=== PATIENT | male | born 1955 | race Caucasian/White ===

== ENCOUNTER 2016-08-17 10:56 | Day surgery (SDC) | payer OTHER ==
[2016-08-14 08:40] VITALS: BMI 28.5
[~2016-08-17 10:56] MED LIST: LIDOCAINE 1% 20 ML VIAL (10MG/ML) FOR IV START INTRADERMA PRN
[2016-08-17 11:12] VITALS: TEMP 97.9
[2016-08-17] MEDS ORDERED: LIDOCAINE 1% 20 ML VIAL (10MG/ML) FOR IV START INTRADERMA ONE (11:25)
[2016-08-17] MEDS: LACTATED RINGERS 1,000 ML IV SCH ×2 (11:25→12:09)
[2016-08-17] MEDS ORDERED: PROPOFOL 10 MG/ML 20 ML VIAL IV ONE (12:10)
[2016-08-17] MEDS ORDERED: LIDOCAINE 1% INJ 10MG/ML (20 ML MDV) ONE (12:10)
--- NOTE | 2016-08-17 12:24 | P.GSHP ---
History of Present Illness H&P Date: 08/17/16 Chief Complaint: GERD This is a 60-year-old male from Dr. santana. Patient complaints of GERD. He has had issues with reflux for several years. He has been known to have a hiatal hernia as well as He's esophagus. Patient states that he is having reflux of food and liquid. He sleeps with his head in an elevated position. - Constitutional Constitutional: Reports as per HPI Past Medical History Past Medical History: GERD/Reflux, Skin Disorder, Thyroid Disorder Additional Past Medical History / Comment(s): psoriasis, hx He's esophagus , hx ulcer, varicose veins, hiatal hernia, History of Any Multi-Drug Resistant Organisms: None Reported Past Surgical History: Hernia Repair, Orthopedic Surgery Additional Past Surgical History / Comment(s): jeremías ankle ORIF, EGD Past Anesthesia/Blood Transfusion Reactions: No Reported Reaction Past Psychological History: No Psychological Hx Reported Smoking Status: Former smoker Past Alcohol Use History: Occasional Additional Past Alcohol Use History / Comment(s): smoked for 2 yrs as a teen Past Drug Use History: None Reported - Past Family History Mother Family Medical History: No Reported History Father Family Medical History: Cancer Medications and Allergies Home Medications Medication Instructions Recorded Confirmed Type Levothyroxine Sodium [Synthroid] 88 mcg PO DAILY 05/05/16 08/17/16 History Multivitamins, Thera [Multivitamin] 1 tab PO DAILY 05/05/16 08/17/16 History Omeprazole [PriLOSEC] 40 mg PO BID 05/05/16 08/17/16 History Enseilar Foam 1 applicate TOPICAL DAILY 08/14/16 08/17/16 History [place]-3 Fatty Acids/Fish Oil [Fish 1 each PO DAILY 08/14/16 08/17/16 History Oil 1,000 mg Softgel] Sildenafil Citrate [Viagra] 50 mg PO DIRECTED PRN 08/14/16 08/17/16 History Vitamin D(Dose Unknown) 1 tab PO DAILY 08/14/16 08/17/16 History Allergies Allergy/AdvReac Type Severity Reaction Status Date / Time No Known Allergies Allergy Verified 08/17/16 11:12 Surgical - Exam Vital Signs Temp Pulse Resp BP Pulse Ox 97.9 F 77 18 153/90 98 08/17/16 11:11 08/17/16 11:11 08/17/16 11:11 08/17/16 11:11 08/17/16 11:11 - General well developed, well nourished, no distress - Eyes PERRL - ENT normal pinna - Neck no masses - Respiratory normal expansion - Cardiovascular Rhythm: regular - Abdomen Abdomen: soft, non tender Assessment and Plan Plan: GERD. We'll perform EGD.
[2016-08-17 12:28] VITALS: RESP 16
[2016-08-17 12:46] VITALS: BP 140/92; PULSE 69
--- NOTE | 2016-08-27 14:48 | P.OP ---
Date of Procedure: 08/17/16 Preoperative Diagnosis: GERD Postoperative Diagnosis: Hiatal hernia Antral gastritis Esophagitis Procedure(s) Performed: EGD Anesthesia: MAC Surgeon: Iglesia Wu Pathology: other (Antrum, esophagus) Condition: stable Description of Procedure: The patient's placed on the endoscopy table in the lateral position. He received IV sedation. The gastroscope some placed oropharynx and passed into the esophagus and into the stomach. The scope was then brought back into the antrum this. Mildly inflamed. A biopsies performed. The scope was unretroflexed and remainder stomach appeared normal. There was a hiatal hernia seen. The GE junction was at 38 cm. The distal esophagus appeared to be inflamed. A biopsies performed. The proximal esophagus appeared normal. Scope withdrawn for patient.
== END 2016-08-17 13:33 | disposition home or self-care (01) ==
LOC: ORWHC2ENDO 10:56
PROVIDERS: ATTEND Surgery
DX: K29.50 Unspecified chronic gastritis without bleeding (principal); K21.0 Gastro-esophageal reflux disease with esophagitis; K44.9 Diaphragmatic hernia without obstruction or gangrene; E07.9 Disorder of thyroid, unspecified; Z79.899 Other long term (current) drug therapy; Z87.891 Personal history of nicotine dependence
CPT/HCPCS: 88305; 88342; 43239; J2001; J2704; 99153

== ENCOUNTER → 2016-08-28 | Outpatient (CLI) | payer OTHER | END | disposition home or self-care (01) | LOC: LABPAT 06:36 | PROVIDERS: ATTEND Anesthesiology | DX: Z01.812 Encounter for preprocedural laboratory examination (principal); Z01.810 Encounter for preprocedural cardiovascular examination | CPT/HCPCS: 93005 ==

== ENCOUNTER 2016-09-03 06:30 | Observation (INO) | payer OTHER ==
[2016-08-27 14:29] VITALS: BMI 28.5
[~2016-09-03 06:30] MED LIST changes: +HEPARIN SODIUM,PORCINE 5,000 UNIT/ML 1 ML VIAL SQ ONE; -LIDOCAINE 1% 20 ML VIAL (10MG/ML) FOR IV START INTRADERMA PRN; +ceFAZolin 2 GM in SODIUM CHLORIDE 0.9% 100 ML IVPB ONE
[2016-09-03] MEDS ORDERED: ONDANSETRON 4 MG/2 ML VIAL IVP ONE ×2 (06:32→10:16)
[2016-09-03] MEDS ORDERED: LIDOCAINE 1% 20 ML VIAL (10MG/ML) FOR IV START INTRADERMA PRN (06:32)
[2016-09-03] MEDS ORDERED: MIDAZOLAM 2 MG/2 ML VIAL IV PRN (06:32)
[2016-09-03] MEDS ORDERED: DEXAMETHASONE SOD PHOSPHATE 10 MG/ML 1 ML VIAL IV ONE (06:32)
[2016-09-03] MEDS ORDERED: SCOPOLAMINE 1.5MG/72HR PATCH TRANSDERM ONE (06:32)
[2016-09-03] MEDS: LACTATED RINGERS 1,000 ML IV SCH (06:43)
[2016-09-03] MEDS ORDERED: BUPIVACAIN-EPI 0.25%-1:200,000 30 ML VIAL SQ ONE ×3 (07:34→09:10)
--- NOTE | 2016-09-03 07:53 | P.GSHP ---
History of Present Illness H&P Date: 09/03/16 Chief Complaint: GERD This is a 60-year-old male referred from Dr. Bolivar. The patient has had long-standing problems with reflux esophagitis. The patient underwent recent EGD is found have evidence of esophagitis. Patient has been well informed on the procedure of laparoscopic Segun fundoplication. The patient is aware the risk of the conversion to the open procedure, risk of injury to the stomach, liver and spleen. The patient is also a risk of recurrent GERD and dysphagia symptoms. The patient understands there is a postoperative diet of full liquids for 2 weeks after surgery. Past Medical History Past Medical History: GERD/Reflux, Skin Disorder, Thyroid Disorder Additional Past Medical History / Comment(s): psoriasis, hx He's esophagus , hx ulcer, varicose veins, hiatal hernia, History of Any Multi-Drug Resistant Organisms: None Reported Past Surgical History: Hernia Repair, Orthopedic Surgery Additional Past Surgical History / Comment(s): jeremías ankle ORIF, EGD Past Anesthesia/Blood Transfusion Reactions: No Reported Reaction Past Psychological History: No Psychological Hx Reported Smoking Status: Former smoker Past Alcohol Use History: Occasional Additional Past Alcohol Use History / Comment(s): smoked for 2 yrs as a teen Past Drug Use History: None Reported - Past Family History Mother Family Medical History: No Reported History Father Family Medical History: Cancer Medications and Allergies Home Medications Medication Instructions Recorded Confirmed Type Levothyroxine Sodium [Synthroid] 88 mcg PO DAILY 05/05/16 08/27/16 History Multivitamins, Thera [Multivitamin] 1 tab PO DAILY 05/05/16 08/27/16 History Omeprazole [PriLOSEC] 40 mg PO BID 05/05/16 08/27/16 History Enseilar Foam 1 applicate TOPICAL DAILY 08/14/16 08/27/16 History [place]-3 Fatty Acids/Fish Oil [Fish 1 each PO DAILY 08/14/16 08/27/16 History Oil 1,000 mg Softgel] Sildenafil Citrate [Viagra] 50 mg PO DIRECTED PRN 08/14/16 08/27/16 History Vitamin D(Dose Unknown) 1 tab PO DAILY 08/14/16 08/27/16 History Allergies Allergy/AdvReac Type Severity Reaction Status Date / Time No Known Allergies Allergy Verified 08/27/16 14:24 Surgical - Exam Vital Signs Temp Pulse Resp BP Pulse Ox 97.9 F 78 16 132/88 97 09/03/16 06:45 09/03/16 06:45 09/03/16 06:45 09/03/16 06:45 09/03/16 06:45 - General well developed, no distress - Eyes PERRL - ENT normal pinna - Neck no masses - Respiratory normal expansion - Cardiovascular Rhythm: regular - Abdomen Abdomen: soft, non tender Assessment and Plan Plan: GERD. We'll perform laparoscopic Segun fundoplication.
[2016-09-03] MEDS ORDERED: fentaNYL (PF) 50 MCG/ML 2 ML AMP ONE (07:59)
[2016-09-03] MEDS ORDERED: LIDOCAINE 1% INJ 10MG/ML (20 ML MDV) ONE (07:59)
[2016-09-03] MEDS ORDERED: GLYCOPYRROLATE 0.2 MG/ML 2 ML VIAL ONE (07:59)
[2016-09-03] MEDS ORDERED: PROPOFOL 10 MG/ML 20 ML VIAL IV ONE (07:59)
[2016-09-03] MEDS ORDERED: NEOSTIGMINE 1 MG/ML 10 ML VIAL ONE (07:59)
[2016-09-03] MEDS ORDERED: MIDAZOLAM 2 MG/2 ML VIAL ONE (07:59)
[2016-09-03] MEDS ORDERED: ROCURONIUM BROMIDE 10 MG/ML 10 ML VIAL IV ONE (07:59)
[2016-09-03] MEDS ORDERED: SUCCINYLCHOLINE CHLORIDE 100 MG/5 ML SYR IV ONE (07:59)
[2016-09-03] MEDS ORDERED: LACTATED RINGERS 1,000 ML IV ONE ×4 (09:19→09:45)
[2016-09-03] MEDS ORDERED: NALOXONE 0.4 MG/ML 1 ML VIAL IV PRN (09:19)
[2016-09-03] MEDS ORDERED: HYDROcodone/APAP 5-325MG 1 EACH TAB PO PRN (09:19)
[2016-09-03] MEDS ORDERED: ONDANSETRON 4 MG/2 ML VIAL IVP PRN (09:19)
--- NOTE | 2016-09-03 09:19 | P.OP ---
Date of Procedure: 09/03/16 Preoperative Diagnosis: GERD Postoperative Diagnosis: GERD Procedure(s) Performed: Laparoscopic Segun fundoplication Anesthesia: DONAVON Surgeon: Iglesia Wu Estimated Blood Loss (ml): 5 Pathology: none sent Condition: stable Disposition: PACU Description of Procedure: The patient was placed on the operating table in the supine position. The patient received general anesthesia. And was placed in dorsal lithotomy position. The patient was prepped and draped in the usual sterile fashion. The skin incision sites were anesthetized with 1% local Xylocaine. The skin was incised in the left periumbilical area and then using a blade less 5 mm trocar under direct visualization panel cavity was entered. After adequate insufflation the laparoscope was then placed into the peritoneal cavity. Next a 5 mm trochars placed in the right epigastric position. Another 5 millimeter trocar the right lateral position. Another 5 millimeter trocar in the left lateral position a 5 mm trocar is placed in the left epigastric position. And then the initial 5 mm trocar was exchanged for a 10 mm trocar. The left lateral lobe liver was retracted. The hernia was seen. The crural defect was then dissected using the Harmonic scissors device. A 360 crural dissection was performed the esophagus stomach was reduced back into the peritoneal Cavity. The crural defect was then closed using 2-0 Ethibond suture. Next the fundus of the stomach was mobilized using the [place] scissors device. and then a 58-[place] bougie dilator was placed oropharynx passed into the esophagus and stomach the fundal plication wrap was then performed by grasping the fundus posteriorly and bringing it around the esophagus and stomach fundoplication was then performed using 2-0 Ethibond suture. Care was taken that the fundal location rested over top of the intra-abdominal esophagus. There was no injury seen to the stomach or esophagus. The dilator was then withdrawn. The abdomen was irrigated there is no bleeding seen. The trochars were then withdrawn and then skin incision sites were closed using 3-0 Monocryl suture Steri-Strips are applied. Patient thought procedure well and sent to recovery room in stable condition.
[2016-09-03] MEDS: HYDROmorphone 1 MG/ML 1 ML SYRINGE IVP PRN ×4 (09:50→20:39)
[2016-09-03] MEDS ORDERED: PANTOPRAZOLE 40 MG/10 ML VIAL IVP ONE (11:30)
--- NOTE | 2016-09-03 15:10 | FL ---
EXAMINATION TYPE: FL UGI w esophagus DATE OF EXAM: 09/03/2016 3:02 PM COMPARISON: NONE HISTORY: Postop Tony TECHNIQUE: A single/double contrast UGI study is performed. FINDINGS: Small amount of free air is under the diaphragm on fluoroscopy. Following a small swallow of contrast no passage of contrast beyond the gastroesophageal junction was evident. A second swallow in a sligh tly different angle is likewise without passage none. Procedure was then terminated. Overhead radiographs are obtained although no additional passage was e vident at this time. Incidental note is made of a chronic fracture of the lateral left posterior rib. IMPRESSION: 1. Complete obstruction above the surgical post Tony fundoplication.
[2016-09-03] MEDS: HEPARIN SODIUM,PORCINE 5,000 UNIT/ML 1 ML VIAL SQ SCH ×2 (16:02→22:58)
[2016-09-03] MEDS ORDERED: ENALAPRILAT 1.25 MG/ML 1 ML VIAL IVP PRN (17:27)
--- NOTE | 2016-09-03 17:32 | P.PN ---
Progress Note - Text The patient is a 60-year-old gentleman with a history of recurrent gastroesophageal reflux with esophagitis. Patient has undergone Niesen fundoplication for surgical management. He presently is sitting up in bed. He has some upper back discomfort at times. No nausea or vomiting. No chest pain. No shortness of breath. Blood pressures have been elevated according to staff. Past medical history: 1. Patient does have history gastroesophageal reflux along with He's esophagus without dysplasia. 2. Hypothyroidism on replacement therapy. 3. History of psoriasis. No history of myocardial infarction, diabetes, or stroke. Medications: No known ALLERGIES Patient does use Viagra for erectile dysfunction as needed. Patient takes omeprazole 40 mg twice a day. [place]-3 fatty acids. Multiple vitamin. Levothyroxin 88 g daily Hydrocodone 7.5-325 one every 6 hours when necessary. Review of systems As mentioned in the history of present illness otherwise unremarkable. Family history Noncontributory Social history No history of any excessive alcohol usage or smoking. Physical examination: Patient is sitting up in bed. Comfortable. In no acute distress. Alert and oriented. Vital signs reveal pulse of 74 and respirations 18 and nonlabored. Blood pressure 141/87 and is O2 saturation is 100 on 2 L. Head and neck exam unremarkable. Extraocular movements intact. No adenopathy or thyromegaly detected in the neck. Lungs and heart examination is clear and regular. Abdomen is soft and nontender. No edema. Pneumatic devices in place. No cranial nerve deficits. He is alert and oriented. No focal weakness noted. Impressions and plans: The patient has past medical history as stated above and now is status post Segun fundoplication. He generally is feeling well. He has had some elevated blood pressures and we will add enalapril IV push if needed. Okay to continue to hold his thyroid medication. Plans are to have a repeat esophageal study tomorrow. Advance otherwise as per surgery. Call if any questions concerns or problems.
[2016-09-04] MEDS: LACTATED RINGERS 1,000 ML IV SCH (05:29)
[2016-09-04 07:17] VITALS: BP 123/62; PULSE 62; RESP 16; TEMP 98.2
--- NOTE | 2016-09-04 08:10 | P.PN ---
Progress Note - Text The patient is a 60-year-old gentleman with a history of recurrent gastroesophageal reflux and that underwent a fundoplication yesterday. This morning he is sitting up in bed. Alert. In no distress. He denies any unusual chest pain or shortness of breath at this time. No nausea or vomiting. Vital signs reveal temperature 98.2 with a pulse of 62 and respirations 16. Blood pressure 123/62. The highest it's been today is 140/86. And he is 96% saturated on room air. Lung and heart exam is clear. Abdomen nontender. No edema. No neurological deficits. Impressions and plans: Plans are to repeat his barium swallow this morning. Discussed with patient and at bedside. apparently has been concerned with some his blood pressure readings which were high yesterday. Presently though they are all within normal limits. She states that they will monitor his home blood pressures and if there is any questions can return to office for further monitoring of his blood pressures. At this time though do not see need to add antihypertensive medications. Can be progressed as per surgery and discharged pending surgical review and results of barium swallow.
--- NOTE | 2016-09-04 08:43 | FL ---
EXAMINATION TYPE: FL UGI w esophagus DATE OF EXAM: 09/04/2016 8:37 AM COMPARISON: 09/03/2016 HISTORY: Post Tony fundoplication TECHNIQUE: A single/double contrast UGI study is performed. FINDINGS: [employer] image of the abdomen shows no gross abnormality. The esophagus shows normal motility and emptying into the stomach. No evidence of hiatal hernia or s tricture noted. No significant gastroesophageal reflux was seen during real time performance of this study. Could not exclude a small amount of free intraperitoneal air which likely is postsurgical. Fluoroscopy time 24 seconds. IMPRESSION: 1. No evidence of obstruction or extravasation.
[2016-09-04] MEDS ORDERED: PANTOPRAZOLE 40 MG/10 ML VIAL IVP SCH (09:00)
[2016-09-04] MEDS: HEPARIN SODIUM,PORCINE 5,000 UNIT/ML 1 ML VIAL SQ SCH (09:07)
--- NOTE | 2016-09-04 12:45 | P.DS ---
Providers Date of admission: 09/03/16 20:49 Expected date of discharge: 09/04/16 Attending physician: Iglesia Wu Consults: 09/03/16 09:19 Consult Physician Routine Consulting Provider: Phuc Marina Reason/Comments: Medical management Do you want consulting provider notified?: Yes Primary care physician: Phuc Marina [facility] Hospital Course: Patient is a 60-year-old male with medical history significant for GERD and esophagitis not responding to medical management. Patient presented to the hospital for elective laparoscopic Segun fundoplication. Patient tolerated procedure well. Upper GI/barium swallow x-ray following surgery with evidence of complete obstruction above the GE junction. Repeat upper GI/barium swallow x-ray on postop day #1 with no evidence of obstruction or extravasation. Prior to discharge, patient denied dysphagia and was tolerating a clear liquid diet. Patient otherwise had an uneventful postoperative course and was deemed stable for discharge to home. Discharge diagnoses: GERD status post laparoscopic Segun fundoplication The above impression and plan have been discussed and directed by Dr. Wu. Kirstin DUMONT acting as scribe for Dr. Wu. Pertinent Studies: Upper GI/barium swallow x-ray 2 Procedures: Laparoscopic Segun fundoplication Patient Condition at Discharge: Good Plan - Discharge Summary New Discharge Prescriptions: HYDROcodone/APAP 7.5-325MG [[place] 7.5-325] 1 tab PO Q6HR PRN #28 tab PRN Reason: Pain Discharge Medication List Levothyroxine Sodium [Synthroid] 88 mcg PO DAILY 05/05/16 [History] Multivitamins, Thera [Multivitamin] 1 tab PO DAILY 05/05/16 [History] [place]-3 Fatty Acids/Fish Oil [Fish Oil 1,000 mg Softgel] 1 cap PO DAILY [History] Sildenafil Citrate [Viagra] 50 mg PO DAILY PRN 08/14/16 [History] Cholecalciferol [Vitamin D3] 1,000 unit PO DAILY 09/03/16 [History] Enstilar Foam 1 applic TOPICAL DAILY 09/03/16 [History] HYDROcodone/APAP 7.5-325MG [[place] 7.5-325] 1 tab PO Q6HR PRN #28 tab 09/03/16 [ Rx] Follow up Appointment(s)/Referral(s): Phuc Marina MD [Primary Care Provider] - 10/05/16 3:45 pm Iglesia Wu MD [STAFF PHYSICIAN] - 09/17/16 1:50 pm Patient Instructions/Handouts: *Surgery [facility] - ([facility]) Lap Segun Fundiplication Post-Op Instructions Activity/Diet/Wound Care/Special Instructions: No heavy lifting, pushing, or pulling items greater than 10 pounds. Full liquid diet for 2 weeks. No caffeinated beverages or straws. Shower daily, no soaking in bath tubs, pools, or hot tubs. No driving while taking pain medication. Notify surgeon with any signs or symptoms of infection, increased pain, or not tolerating diet. Discharge Disposition: HOME SELF-CARE
== END 2016-09-04 13:50 | disposition home or self-care (01) ==
LOC: OR 06:30 → 3SUR 09:20 → OR 20:49 → 3SUR 20:49
PROVIDERS: ADMIT Surgery; ATTEND Surgery
DX: K21.0 Gastro-esophageal reflux disease with esophagitis (principal); K22.70 Barrett's esophagus without dysplasia; K44.9 Diaphragmatic hernia without obstruction or gangrene; E03.9 Hypothyroidism, unspecified; Z87.891 Personal history of nicotine dependence; L40.9 Psoriasis, unspecified; Z79.899 Other long term (current) drug therapy
CPT/HCPCS: 74240 ×2; 43280; G0378 ×2; J2250; J1644 ×2; J1100; J2710; Q9967 ×2; J0690; J2405; J2001; J3010; J1170; J0330; J2704; C9113 ×2

== ENCOUNTER → 2016-10-06 | Outpatient (CLI) | payer OTHER ==
[2016-10-06 08:02] LABS: CH 32.3; CHCM 33.6; HCT 50.7 % (39.0-53.0); HDW 2.55; HGB 16.6 gm/dL (13.0-17.5); MCH 31.6 pg (25.0-35.0); MCHC 32.8 g/dL (31.0-37.0); MCV 96.4 fL (80.0-100.0); RBC 5.26 m/uL (4.30-5.90); WBC 4.3 k/uL (3.8-10.6)
[2016-10-06 11:49] LABS: ALT 51 U/L (21-72); AST 35 U/L (17-59); Alkaline Phosphatase 48 U/L (38-126); Anion Gap 6 mmol/L; Blood Urea Nitrogen 13 mg/dL (9-20); Calcium 9.6 mg/dL (8.4-10.2); Carbon Dioxide 31 mmol/L (22-30); Chloride 106 mmol/L (98-107); Cholesterol 130 mg/dL (<200); Glucose 101 mg/dL (74-99); HDL Cholesterol 91 mg/dL (40-60); Non-African American GFR(MDRD) >60 (>60 ml/min/1.73 sqM); Potassium 4.7 mmol/L (3.5-5.1); Sodium 143 mmol/L (137-145); Total Bilirubin 0.7 mg/dL (0.2-1.3); Total Protein 6.4 g/dL (6.3-8.2); Triglycerides 31 mg/dL (<150)
[2016-10-06 12:17] LABS: Prostate Specific Antigen 1.06 ng/mL (0.00-4.00)
== END | disposition home or self-care (01) ==
LOC: LABWHC1 07:00
PROVIDERS: ATTEND Internal Medicine
DX: E87.8 Other disorders of electrolyte and fluid balance, not elsewhere classified (principal); R53.83 Other fatigue; E03.9 Hypothyroidism, unspecified; E78.1 Pure hyperglyceridemia; N40.0 Benign prostatic hyperplasia without lower urinary tract symptoms
CPT/HCPCS: 36415; 80053; 80061; 84153; 84443; 85027

== ENCOUNTER → 2016-12-23 | Outpatient (CLI) | payer OTHER ==
--- NOTE | 2016-12-23 09:22 | NM ---
EXAMINATION TYPE: NM hepatobiliary w EF DATE OF EXAM: 12/23/2016 9:03 AM COMPARISON: NONE INDICATION: Gastroesophageal reflux disease TECHNIQUE: After the intravenous administration of 5.31 mCi Tc 99m Mebrofenin hepatobiliary scintigra phy is performed. Images were obtained immediately post injection. FINDINGS: There is prompt uptake and excretion of radiotracer by the liver. Extrahepatic ducts are identified at 16 minutes. The gallbladder is visualized within 16 minutes. Small bowel activity is noted within 48 minutes. At one hour 8 ounces of oral ensure plus is given to mimic CCK and gallbladder ejection fraction is c alculated at 99 %, which is markedly elevated. (Normal >35% and <80%.). IMPRESSION: 1. Biliary hyperkinesia with an ejection fraction of 99%.
== END | disposition home or self-care (01) ==
LOC: RADNMMAIN 06:47
PROVIDERS: ATTEND Surgery
DX: K82.8 Other specified diseases of gallbladder (principal)
CPT/HCPCS: 78226; A9537

== ENCOUNTER 2017-02-11 06:20 | Day surgery (SDC) | payer OTHER ==
[2017-02-05 11:30] VITALS: BMI 25.7
[~2017-02-11 06:20] MED LIST changes: +DEXAMETHASONE SOD PHOSPHATE 10 MG/ML 1 ML VIAL IV ONE; +HYDROmorphone 1 MG/ML 1 ML SYRINGE IVP PRN; +LACTATED RINGERS 1,000 ML IV SCH; +MIDAZOLAM 2 MG/2 ML VIAL IV PRN; +ONDANSETRON 4 MG/2 ML VIAL IVP ONE
[2017-02-11] MEDS ORDERED: LIDOCAINE 1% 20 ML VIAL (10MG/ML) FOR IV START INTRADERMA ONE (06:50)
[2017-02-11] MEDS ORDERED: BUPIVACAIN-EPI 0.5%-1:200,000 30 ML VIAL SQ ONE (07:26)
--- NOTE | 2017-02-11 07:42 | P.GSHP ---
History of Present Illness H&P Date: 02/11/17 Chief Complaint: Right upper quadrant pain This is a 61-year-old male for from Dr. Bolivar. Patient presents today for laparoscopic cholecystectomy. He's had right lower quadrant pain. His recent HIDA scan shows abnormal ejection fraction. Past Medical History Past Medical History: GERD/Reflux, Skin Disorder, Thyroid Disorder Additional Past Medical History / Comment(s): Difficulty swallowing, psoriasis, hx He's esophagus, hx ulcer, varicose veins. History of Any Multi-Drug Resistant Organisms: None Reported Past Surgical History: Hernia Repair, Orthopedic Surgery Additional Past Surgical History / Comment(s): 09/03/16 Laparoscopic raven fundoplication. Other surgical hx: jeremías ankle ORIF, EGD/colonoscopy, hiatal hernia repair and esophagus surgery. Past Anesthesia/Blood Transfusion Reactions: No Reported Reaction Past Psychological History: No Psychological Hx Reported Smoking Status: Never smoker Past Alcohol Use History: Occasional Past Drug Use History: None Reported - Past Family History Mother Family Medical History: CVA/TIA, Dementia Additional Family Medical History / Comment(s): Mother in her mid 90' s from a CVA with complications. Father Family Medical History: CVA/TIA Additional Family Medical History / Comment(s): Father short[place] after hip fracture with surgery in his mid 90s. Medications and Allergies Home Medications Medication Instructions Recorded Confirmed Type Levothyroxine Sodium [Synthroid] 88 mcg PO DAILY 05/05/16 02/11/17 History Multivitamins, Thera [Multivitamin 1 tab PO DAILY 05/05/16 02/11/17 History (formulary)] [place]-3 Fatty Acids/Fish Oil [Fish 1 cap PO DAILY 08/14/16 02/11/17 History Oil 1,000 mg Softgel] Sildenafil Citrate [Viagra] 50 mg PO DAILY PRN 08/14/16 02/11/17 History Cholecalciferol [Vitamin D3] 1,000 unit PO DAILY 09/03/16 02/11/17 History Enstilar Foam 1 applic TOPICAL DAILY 09/03/16 02/11/17 History Allergies Allergy/AdvReac Type Severity Reaction Status Date / Time No Known Allergies Allergy Verified 02/11/17 06:40 Surgical - Exam Vital Signs Temp Pulse Resp BP Pulse Ox 96.9 F L 68 16 125/80 98 02/11/17 06:38 07/06/17 06:38 02/11/17 06:38 02/11/17 06:38 02/11/17 06:38 - General well developed, no distress - Eyes PERRL - ENT normal pinna - Neck no masses - Respiratory normal expansion - Cardiovascular Rhythm: regular - Abdomen Abdomen: soft, non tender Assessment and Plan Plan: Chronic cholecystitis Abnormal HIDA scan We'll perform laparoscopic cholecystectomy
[2017-02-11] MEDS ORDERED: ROCURONIUM BROMIDE 10 MG/ML 10 ML VIAL IV ONE (07:44)
[2017-02-11] MEDS ORDERED: NEOSTIGMINE 1 MG/ML 10 ML VIAL ONE (07:44)
[2017-02-11] MEDS ORDERED: KETOROLAC 30 MG/ML 1 ML VIAL ONE (07:44)
[2017-02-11] MEDS ORDERED: fentaNYL (PF) 50 MCG/ML 2 ML AMP ONE (07:44)
[2017-02-11] MEDS ORDERED: MIDAZOLAM 2 MG/2 ML VIAL ONE (07:44)
[2017-02-11] MEDS ORDERED: SUCCINYLCHOLINE CHLORIDE 100 MG/5 ML SYR IV ONE (07:44)
[2017-02-11] MEDS ORDERED: GLYCOPYRROLATE 0.2 MG/ML 2 ML VIAL ONE (07:44)
[2017-02-11] MEDS ORDERED: LIDOCAINE 1% INJ 10MG/ML (20 ML MDV) ONE (07:44)
[2017-02-11] MEDS ORDERED: PROPOFOL 10 MG/ML 20 ML VIAL IV ONE (07:44)
[2017-02-11] MEDS ORDERED: LACTATED RINGERS 1,000 ML IV ONE (08:18)
--- NOTE | 2017-02-11 08:19 | P.OP ---
Date of Procedure: 02/11/17 Preoperative Diagnosis: Chronic cholecystitis Postoperative Diagnosis: Chronic cholecystitis Procedure(s) Performed: Laparoscopic cholecystectomy Implants: Anesthesia: DONAVON Surgeon: Iglesia Wu Estimated Blood Loss (ml): 3 Pathology: other (All bladder) Condition: stable Disposition: PACU Indications for Procedure: Operative Findings: Description of Procedure: The patient was placed on the operating table. The patient received a general endotracheal tube anesthesia. The patients abdomen was prepped and draped in the usual sterile fashion. Through an infraumbilical stab incision, the fascia of the anterior abdominal wall was grasped with a pair of Kochers and then the Veress needle was placed in the peritoneal cavity. Position of the Veress needle was confirmed with positive drop test. The abdomen was then insufflated. After adequate insufflation, the 10 mm trocar was placed in the peritoneal cavity. Following this the laparoscope was placed in the peritoneal cavity. The patient was placed in the head-up, right side up position and then a 5 mm trocar was placed in the right lateral and right subcostal position under direct visualization. A 8 mm trocar was placed in the epigastric position. The gallbladder was grasped in the fundus and infundibulum. Traction on the gallbladder was placed in the lateral and the cephalad positions. The triangle of Calot was visualized.. The cystic duct was bluntly dissected until the union of the cystic duct and common bile duct was seen. The cystic duct was then divided and sealed with the Harmonic scissors. A PDS Endoloop was then placed throughout the cystic duct stump. The cystic artery divided and sealed with the Harmonic scissors. The gallbladder was then removed from the liver bed using Harmonic scissors. The gallbladder was then extracted through the epigastric port site. Operative field was checked for any bleeding spots and Harmonic scissors was used to coagulate the liver bed. The abdomen was irrigated. The trocars were removed. The skin was closed using interrupted 3-0 Vicryl suture. Dermabond dressing were applied. The patient tolerated the procedure well.
[2017-02-11 08:36] VITALS: TEMP 97.2
[2017-02-11] MEDS ORDERED: HYDROcodone/APAP 7.5-325MG 1 EACH TAB PO ONE (09:42)
[2017-02-11 09:49] VITALS: BP 122/72
[2017-02-11 10:12] VITALS: RESP 18
[2017-02-11 10:32] VITALS: PULSE 70
== END 2017-02-11 11:06 | disposition home or self-care (01) ==
LOC: OR 06:20
PROVIDERS: ATTEND Surgery
DX: K80.10 Calculus of gallbladder with chronic cholecystitis without obstruction (principal); K21.9 Gastro-esophageal reflux disease without esophagitis; E07.9 Disorder of thyroid, unspecified; Z79.899 Other long term (current) drug therapy
CPT/HCPCS: 47562; J2250; J1644; J1100; J2710; J0690; J2405; J2001; J3010; J1885; J0330; J2704; 88304

== ENCOUNTER 2018-04-22 07:13 | Day surgery (SDC) | payer OTHER ==
[2018-04-20 14:50] VITALS: BMI 26.4
[~2018-04-22 07:13] MED LIST changes: -DEXAMETHASONE SOD PHOSPHATE 10 MG/ML 1 ML VIAL IV ONE; -HEPARIN SODIUM,PORCINE 5,000 UNIT/ML 1 ML VIAL SQ ONE; -HYDROmorphone 1 MG/ML 1 ML SYRINGE IVP PRN; +LIDOCAINE 1% 20 ML VIAL (10MG/ML) FOR IV START INTRADERMA PRN; -MIDAZOLAM 2 MG/2 ML VIAL IV PRN; -ONDANSETRON 4 MG/2 ML VIAL IVP ONE; -ceFAZolin 2 GM in SODIUM CHLORIDE 0.9% 100 ML IVPB ONE
[2018-04-22 07:34] VITALS: RESP 16; TEMP 96.8
[2018-04-22] MEDS ORDERED: fentaNYL (PF) 50 MCG/ML 2 ML AMP ONE (09:11)
[2018-04-22] MEDS ORDERED: MIDAZOLAM 2 MG/2 ML VIAL ONE (09:11)
[2018-04-22] MEDS ORDERED: PROPOFOL 10 MG/ML 20 ML VIAL IV ONE (09:11)
--- NOTE | 2018-04-22 09:32 | P.PCN ---
Date of Procedure: 04/22/18 Procedure(s) Performed: BRIEF HISTORY: Patient is a 62-year-old pleasant male, scheduled for an elective colonoscopy as a part of screening for colorectal neoplasia. PROCEDURE PERFORMED: Colonoscopy. PREOPERATIVE DIAGNOSIS: Screening for colon cancer. IV sedation per Anesthesia. PROCEDURE: After informed consent was obtained, the patient, was brought into the endoscopy unit. IV sedation was administered by Anesthesia under continuous monitoring. Digital rectal examination was normal. Initially the Olympus CF- 160 flexible video colonoscope was then inserted in the rectum, gradually advanced into the cecum without any difficulty. Careful examination was performed as the scope was gradually being withdrawn. Ileocecal valve and the appendiceal orifice were visualized and appeared normal. Prep was excellent. Mucosa of the cecum, ascending colon, transverse colon, descending colon, sigmoid colon, and rectum appeared normal. Retroflexion was performed in the rectum and no lesions were seen. The patient tolerated the procedure well. IMPRESSION: Normal-appearing colon from rectum to cecum with no evidence of colorectal neoplasia . RECOMMENDATIONS: Findings of this examination were discussed with the patient as well as a family. He was advised to have a repeat screening colonoscopy in 10 years.
[2018-04-22 10:04] VITALS: BP 135/88; PULSE 63
== END 2018-04-22 10:05 | disposition home or self-care (01) ==
LOC: ORWHC2ENDO 07:13
PROVIDERS: ATTEND Internal Medicine Gastroenterology
DX: Z12.11 Encounter for screening for malignant neoplasm of colon (principal); Z87.891 Personal history of nicotine dependence; E07.9 Disorder of thyroid, unspecified; K21.9 Gastro-esophageal reflux disease without esophagitis; R13.10 Dysphagia, unspecified; Z79.899 Other long term (current) drug therapy; Z79.890 Hormone replacement therapy
CPT/HCPCS: J2250; J3010; J2704; G0121

== ENCOUNTER 2018-09-28 09:52 | Day surgery (SDC) | payer OTHER ==
[2018-09-26 12:08] VITALS: BMI 26.4
[~2018-09-28 09:52] MED LIST changes: -LIDOCAINE 1% 20 ML VIAL (10MG/ML) FOR IV START INTRADERMA PRN
[2018-09-28 10:31] VITALS: RESP 16; TEMP 98.8
[2018-09-28] MEDS ORDERED: fentaNYL (PF) 50 MCG/ML 2 ML AMP ONE (11:13)
[2018-09-28] MEDS ORDERED: MIDAZOLAM 2 MG/2 ML VIAL ONE (11:13)
[2018-09-28] MEDS ORDERED: PROPOFOL 10 MG/ML 20 ML VIAL IV ONE (11:13)
--- NOTE | 2018-09-28 11:28 | P.PCN ---
Date of Procedure: 09/28/18 Procedure(s) Performed: BRIEF HISTORY: Patient is a 62-year-old, pleasant, male, with history of GERD/ He's esophagus scheduled for a surveillance upper endoscopy today. He has history of GERD of several years duration and was on Prilosec 20 mg daily and was doing well. Last EGD was 2 years ago that showed long segment He's esophagus by biopsy did not show any evidence of dysplasia. He underwent antireflux surgery about 8 months ago and since then his acid reflux symptoms have resolved and patient has stopped the Prilosec. He presently denies any heartburn or dysphagia.. PROCEDURE PERFORMED: Esophagogastroduodenoscopy with biopsy. PREOPERATIVE DIAGNOSIS: Surveillance of He's esophagus. IV sedation per anesthesia. PROCEDURE: After informed consent was obtained, the patient was brought into the endoscopy unit. IV sedation was administered by Anesthesia under continuous monitoring. Initially the Olympus GIF-140 video endoscope was inserted into the mouth. Esophagus intubated without any difficulty. It was gradually advanced into the stomach and duodenum and carefully examined. The bulb and the second part of the duodenum appeared normal. The scope at this time was withdrawn to the stomach, adequately insufflated with air, and upon careful examination, mucosa of the antrum, body, cardia and the fundus appeared normal. The scope was then withdrawn into the esophagus. Moderate size hiatal hernia noted. The diaphragmatic impression was located at 40 cm from the incisors. The GE junction was located at 35 cm from the incisors. Moderate size hiatal hernia noted. There was long segment of He's esophagus and from 25-35 cm from the incisors and the mucosa in the He's esophagus appeared inflamed any matters but no nodularity seen. Multiple random biopsies were done from the distal and proximal part of the He's esophagus. There was a linear erosions or ulcerations noted a small to the segment of He's esophagus consistent with LA grade C reflux esophagitis. The rest of the esophagus appeared normal. The patient tolerated the procedure well. IMPRESSION: 1. Long segment He's esophagus extending from 25-36 cm from the incisors status post multiple biopsies to rule out dysplasia. 2. Linear erosions and ulcerations proximal to the esophagus consistent with LA grade C reflux esophagitis. 3. Moderate size hiatal hernia. RECOMMENDATIONS: The findings of this examination were discussed with the patient as well as his family. He was advised to follow with the biopsy results. He will be started back on Prilosec 20 mg twice daily for 2 months followed by once daily for reflux esophagitis. If the biopsy does not show any evidence of dysplasia, he can have a repeat upper endoscopy in 2 years. He'll be seen in the office in 2 months.
[2018-09-28 11:37] VITALS: PULSE 68
[2018-09-28 11:53] VITALS: BP 114/82
== END 2018-09-28 12:17 | disposition home or self-care (01) ==
LOC: ORWHC2ENDO 09:52
PROVIDERS: ATTEND Internal Medicine Gastroenterology
DX: K22.70 Barrett's esophagus without dysplasia (principal); K22.10 Ulcer of esophagus without bleeding; K44.9 Diaphragmatic hernia without obstruction or gangrene; E07.9 Disorder of thyroid, unspecified; L40.9 Psoriasis, unspecified; Z79.890 Hormone replacement therapy; Z87.891 Personal history of nicotine dependence; Z79.899 Other long term (current) drug therapy
CPT/HCPCS: 88305; 43239; J2250; J3010; J2704

== ENCOUNTER 2020-10-09 09:15 | Day surgery (SDC) | payer MEDICARE, OTHER ==
[2020-10-04 15:47] VITALS: BMI 26.4
[~2020-10-09 09:15] MED LIST changes: +LIDOCAINE 1% (10MG/ML) FOR IV START INTRADERMA PRN
[2020-10-09 09:52] VITALS: TEMP 972
[2020-10-09] MEDS ORDERED: LIDOCAINE 1% INJ 10MG/ML (20 ML MDV) ONE (10:24)
[2020-10-09] MEDS ORDERED: PROPOFOL 10 MG/ML 20 ML VIAL IV ONE (10:24)
--- NOTE | 2020-10-09 10:36 | P.PCN ---
Date of Procedure: 10/09/20 Procedure(s) Performed: BRIEF HISTORY: Patient is a 64-year-old, pleasant, white male scheduled for an upper endoscopy as a part of evaluation of long-standing history of GERD and He's esophagus.. PROCEDURE PERFORMED: Esophagogastroduodenoscopy with biopsies. PREOPERATIVE DIAGNOSIS: Surveillance of He's esophagus. IV sedation per anesthesia. PROCEDURE: After informed consent was obtained, the patient was brought into the endoscopy unit. IV sedation was administered by Anesthesia under continuous monitoring. Initially the Olympus GIF-140 video endoscope was inserted into the mouth. Esophagus intubated without any difficulty. It was gradually advanced into the stomach and duodenum and carefully examined. The bulb and the second part of the duodenum appeared normal. The scope at this time was withdrawn to the stomach, adequately insufflated with air, and upon careful examination, mucosa of the antrum, body, cardia and the fundus appeared normal. The scope was then withdrawn into the esophagus. The GE junction was located at 36 cm from the incisors. Moderate size hiatal hernia noted. There was long segment of He's esophagus extending from 26-36 cm from the incisors with normal- appearing mucosa and multiple biopsies were done. The rest of the esophagus appeared normal. There were no erosions or ulcerations seen and the patient tolerated the procedure well. IMPRESSION: 1. Long segment He's esophagus extending from 26-30 cm from the incisors status post multiple biopsies. 2. Moderate size hiatal hernia.. RECOMMENDATIONS: The findings of this examination were discussed with the patient as well as his family. He was advised to follow with the biopsy r esults. If the biopsy shows evidence of dysplasia he can have a repeat upper endoscopy in 2-3 years..
[2020-10-09 10:45] VITALS: RESP 16
[2020-10-09 11:00] VITALS: BP 128/86; PULSE 69
== END 2020-10-09 11:19 | disposition home or self-care (01) ==
LOC: ORWHC2ENDO 09:15
PROVIDERS: ATTEND Internal Medicine Gastroenterology
DX: K22.70 Barrett's esophagus without dysplasia (principal); K44.9 Diaphragmatic hernia without obstruction or gangrene; K21.9 Gastro-esophageal reflux disease without esophagitis; Z79.890 Hormone replacement therapy; Z79.899 Other long term (current) drug therapy; Z98.890 Other specified postprocedural states
CPT/HCPCS: 88305; 43239; J2001; J2704

== ENCOUNTER → 2023-12-08 | Outpatient (CLI) | payer MEDICARE ==
[2023-12-08 15:39] LABS: African American GFR (CKD) >90 (>60 ml/min/1.73 sqM); Blood Urea Nitrogen 16 mg/dL (9-20); Non-African American GFR(CKD) 89 (>60 ml/min/1.73 sqM)
--- NOTE | 2023-12-08 21:31 | CT ---
CTA CHEST EXAMINATION TYPE: CT angio chest DATE OF EXAM: 12/08/2023 INDICATION: f/u aneurysm CT DLP: 814.5 mGycm, Automated exposure control for dose reduction was used. CONTRAST: Patient injected with 100ml mL of Isovue 370. COMPARISON: No comparison studies at this location. TECHNIQUE: CT of the chest is performed on a spiral scan at 2 mm thick sections. Study is performed with intravenous contrast timed for evaluation for thoracic aneurysm. This will limit additional por tions of the evaluation. Three-D reconstructed images from a separate computerized technologists are present. FINDINGS: No persistent filling defects are evident to suggest an acute pulmonary embolism. No mediastinal or hilar adenopathy enlarged by CT criteria is evident. The ascending aorta diameter at the level of the main pulmonary artery is 4.2 cm. The main pulmonary artery diameter at the bifurcation is 2.7 cm. Aorta tapers from the aortic arch to the proximal abd ominal aorta. There is a three-vessel arch. Lung windows are clear. Limited CT sections were through the upper abdomen. Hiatal hernia is present. IMPRESSION: 1. Ascending thoracic aortic aneurysm 4.2 cm AP dimension. 2. Small to moderate size hiatal hernia.
== END ==
LOC: RADCTMAIN 14:37
PROVIDERS: ATTEND Internal Medicine Interventional Cardiology
DX: I71.21 Aneurysm of the ascending aorta, without rupture (principal); K44.9 Diaphragmatic hernia without obstruction or gangrene
CPT/HCPCS: 82565; 84520; 71275; 36415; Q9967

== ENCOUNTER 2024-03-07 07:57 | Emergency (ER) | payer MEDICARE ==
[2024-03-07 08:04] VITALS: RESP 18; TEMP 98
--- NOTE | 2024-03-07 08:36 | ED ---
Recheck HPI - General Chief Complaint: Recheck/Abnormal Lab/Rx Stated Complaint: Bat bite Time Seen by Provider: 03/07/24 08:02 Source: patient, RN notes reviewed Mode of arrival: ambulatory Limitations: no limitations - History of Present Illness Initial Comments: 68-year-old male presents emergency department chief complaint of a bat bite to his right wrist. Patient states that he removed a bat from his house last night states that he went to check on him this morning and states that he was not sure where it was and he states that it bit his right wrist he has a notable annika is unsure when his last tetanus was. Patient states that he is concerned about rabies. - Related Data Home Medications Medication Instructions Recorded Confirmed Levothyroxine Sodium [Synthroid] 88 mcg PO DAILY 05/05/16 10/04/20 Multivitamins, Thera [Multivitamin 1 tab PO DAILY 05/05/16 10/04/20 (formulary)] Fish Oil Cap 600 mg PO QAM 10/04/20 10/04/20 Omeprazole [PriLOSEC] 20 mg PO AC-BRKFST 10/04/20 10/04/20 Allergies Allergy/AdvReac Type Severity Reaction Status Date / Time No Known Allergies Allergy Verified 03/07/24 08:03 Review of Systems ROS Statement: Those systems with pertinent positive or pertinent negative responses have been documented in the HPI. ROS Other: All systems not noted in ROS Statement are negative. Past Medical History Past Medical History: GERD/Reflux, Skin Disorder, Thyroid Disorder Additional Past Medical History / Comment(s): eczema, hx He's esophagus, hx ulcer, varicose veins. History of Any Multi-Drug Resistant Organisms: None Reported Past Surgical History: Cholecystectomy, Hernia Repair, Orthopedic Surgery Additional Past Surgical History / Comment(s): Laparoscopic raven fundoplication/"wrap". jeremías ankle ORIF, EGD/colonoscopy, . Past Anesthesia/Blood Transfusion Reactions: No Reported Reaction Past Psychological History: No Psychological Hx Reported Smoking Status: Never smoker Past Alcohol Use History: Occasional Past Drug Use History: None Reported - Past Family History Father Family Medical History: Cancer Additional Family Medical History / Comment(s): . General Exam Limitations: no limitations General appearance: alert, in no apparent distress Head exam: Present: atraumatic, normocephalic, normal inspection Respiratory exam: Present: normal lung sounds bilaterally. Absent: respiratory distress, wheezes, rales, rhonchi, stridor Cardiovascular Exam: Present: regular rate, normal rhythm, normal heart sounds. Absent: systolic murmur, diastolic murmur, rubs, gallop, clicks Extremities exam: Present: other (Right wrist there is notable abrasion were reported bat bite was) Course Vital Signs 03/07/24 08:01 Temperature 98 F Pulse Rate 99 Respiratory 18 Rate Blood Pressure 140/88 O2 Sat by Pulse 99 Oximetry Medical Decision Making - Medical Decision Making Was pt. sent in by a medical professional or institution (, JAYLYN, DEPOSITING MACHINE OPERATOR, urgent care, hospital, or long-term...) When possible be specific @ -No Did you speak to anyone other than the patient for history (EMS, parent, family, police, friend...)? What history was obtained from this source @ -No Did you review nursing and triage notes (agree or disagree)? Why? @ -I reviewed and agree with nursing and triage notes Were old charts reviewed (outside hosp., previous admission, EMS record, old EKG, old radiological studies, urgent care reports/EKG's, long-term records)? Report findings @ -No old charts were reviewed Differential Diagnosis (chest pain, altered mental status, abdominal pain women, abdominal pain men, vaginal bleeding, weakness, fever, dyspnea, syncope, headache, dizziness, GI bleed, back pain, seizure, CVA, palpatations, mental health, musculoskeletal)? @ -Rabies exposure, Bite EKG interpreted by me (3pts min.). @ -None X-rays interpreted by me (1pt min.). @ -None done CT interpreted by me (1pt min.). @ -None done U/S interpreted by me (1pt. min.). @ -None done What testing was considered but not performed or refused? (CT, X-rays, U/S, labs)? Why? @ -None What meds were considered but not given or refused? Why? @ -None Did you discuss the management of the patient with other professionals (professionals i.e. JAYLYN Arnett, DEPOSITING MACHINE OPERATOR, lab, RT, psych nurse, healthcare social worker, dry can tender, teacher, network security officer, case technician)? Give summary @ -No Was smoking cessation discussed for >3mins.? @ -No Was critical care preformed (if so, how long)? @ -No Were there social determinants of health that impacted care today? How? (Homelessness, low income, unemployed, alcoholism, drug addiction, transportation, low edu. Level, literacy, decrease access to med. care, group home, rehab)? @ -No Was there de-escalation of care discussed even if they declined (Discuss DNR or withdrawal of care, Hospice)? DNR status @ -No What co-morbidities impacted this encounter? (DM, HTN, Smoking, COPD, CAD, Cancer, CVA, ARF, Chemo, Hep., AIDS, mental health diagnosis, sleep apnea, morbid obesity)? @ -None Was patient admitted / discharged? Hospital course, mention meds given and route, prescriptions, significant lab abnormalities, going to OR and other pertinent info. @ -Discharged patient's tetanus is updated patient was given immunoglobulin and rabies, rabies vaccine was given prescription for days 3 7 and 14 Undiagnosed new problem with uncertain prognosis? @ -No Drug Therapy requiring intensive monitoring for toxicity (Heparin, Nitro, Insulin, Cardizem)? @ -No Were any procedures done? @ -No Diagnosis/symptom? @ -Bat bite Acute, or Chronic, or Acute on Chronic? @ -acute Uncomplicated (without systemic symptoms) or Complicated (systemic symptoms)? @ -uncomplicated Side effects of treatment? @ -No Exacerbation, Progression, or Severe Exacerbation? @ -No Poses a threat to life or bodily function? How? (Chest pain, [place], [place], pneumonia, PE, COPD, DKA, ARF, appy, cholecystitis, CVA, Diverticulitis, Homicidal, Suicidal, threat to staff... and all critical care pts) @ -No Disposition Clinical Impression: Bat bite wound Disposition: HOME SELF-CARE Condition: Stable Instructions (If sedation given, give patient instructions): Rabies (ED) Additional Instructions: Please return to the Emergency Department if symptoms worsen or any other concerns. Is patient prescribed a controlled substance at d/c from ED?: No Referrals: Balwinder Clarke DO [Primary Care Provider] - 1-2 days Time of Disposition: 08:36
[2024-03-07] MEDS: RABIES VACCINE (PCEC) 2.5 UNIT KIT IM ONE (08:53)
[2024-03-07] MEDS: RABIES IMM GLOB 300 UNIT/2 ML VIAL IM ONE (08:56)
[2024-03-07] MEDS: DIPH,PERTUS(ACELL)TETVAC-LF 0.5 ML VIAL IM ONE (09:02)
[2024-03-07 09:19] VITALS: BP 134/77; PULSE 81
== END 2024-03-07 08:05 | disposition home or self-care (01) ==
LOC: EC 07:57
DX: S61.551A Open bite of right wrist, initial encounter (principal); Z23 Encounter for immunization; Z20.3 Contact with and (suspected) exposure to rabies; Z29.14 Encounter for prophylactic rabies immune globulin; Z90.49 Acquired absence of other specified parts of digestive tract; W55.81XA Bitten by other mammals, initial encounter
CPT/HCPCS: 90377; 90471; 90472; 90675; 90715; 96372; 99283